=== PATIENT | female | born 1975 ===

== ENCOUNTER 2022-04-25 00:03 | Emergency (ER) | payer BC ==
[2022-04-25] MEDS ORDERED: Sodium Chloride 0.9% 10 ML Syringe FLUSH PRN (00:20)
[2022-04-25] MEDS ORDERED: Ondansetron 4 MG/2 ML SDV IVPUSH PRN (00:24)
[2022-04-25] MEDS ORDERED: HYDROmorphone 0.5 MG/0.5 ML Syringe IVPUSH PRN (00:24)
[2022-04-25] MEDS ORDERED: Iopamidol 612 MG/ML 100 ML Bottle IVPUSH STA (00:28)
[2022-04-25] MEDS ORDERED: Sodium Chloride 0.9% 1,000 ML IV SCH (00:30)
[2022-04-25 00:48] LABS: ANION GAP 8.6 meq/L (7-15); CHLORIDE,CL 101 mmol/L (98-107); SODIUM,NA 138 mmol/L (136-145)
[2022-04-25 00:50] LABS: ESTIMATED GFR 98 mL/min (>=60)
== END 2022-04-25 01:50 ==
LOC: LL.ED 00:03
DX: K35.30 Acute appendicitis with localized peritonitis, without perforation or gangrene (principal); Z88.0 Allergy status to penicillin
CPT/HCPCS: 36415; 74177; 80053; 81001; 83605; 85025; 96361; 96374; 96375; 99284; J1170; J2405; J7030; Q9967